=== PATIENT | male | born 1975 | race Two or more races ===

== ENCOUNTER 2021-09-19 13:32 | Emergency (ER) | payer OTHER ==
--- NOTE | 2021-09-19 15:25 | ED ---
General Adult HPI - General Chief complaint: Upper Respiratory Infection Stated complaint: Cough,FIOR-Wants covid screening Time Seen by Provider: 09/19/21 14:22 Source: patient, RN notes reviewed Mode of arrival: ambulatory Limitations: no limitations - History of Present Illness Initial comments: 46-year-old male presents to the emergency room for a chief complaint of not feeling well. Patient believes he has COVID-19. Patient has had a cough and shortness of breath since the day after [place]. Patient states he was told he could get an antibody infusion here. Patient states he has a history of asthma, he does use an inhaler at home. He has slight shortness of breath. He is unvaccinated Patient has no other complaints at this time including shortness of breath, chest pain, abdominal pain, nausea or vomiting, headache, or visual changes. - Related Data Allergies Allergy/AdvReac Type Severity Reaction Status Date / Time No Known Allergies Allergy Verified 09/19/21 14:14 Review of Systems ROS Statement: Those systems with pertinent positive or pertinent negative responses have been documented in the HPI. ROS Other: All systems not noted in ROS Statement are negative. Past Medical History Past Medical History: No Reported History, Asthma History of Any Multi-Drug Resistant Organisms: None Reported Past Surgical History: Orthopedic Surgery, Tonsillectomy Past Psychological History: No Psychological Hx Reported Smoking Status: Current every day smoker Past Alcohol Use History: None Reported Past Drug Use History: None Reported General Exam Limitations: no limitations General appearance: alert, in no apparent distress Head exam: Present: atraumatic Eye exam: Present: normal appearance, PERRL, EOMI. Absent: scleral icterus, conjunctival injection ENT exam: Present: normal exam, mucous membranes moist Neck exam: Present: normal inspection, full ROM Respiratory exam: Present: normal lung sounds bilaterally. Absent: respiratory distress, wheezes Cardiovascular Exam: Present: regular rate, normal rhythm, normal heart sounds Course Vital Signs 09/19/21 14:12 Temperature 98.4 F Pulse Rate 88 Respiratory 18 Rate Blood Pressure 127/83 O2 Sat by Pulse 100 Oximetry Medical Decision Making - Medical Decision Making Vitals are stable. Patient well-appearing. COVID-19 is positive. Patient does qualify for priority antibody infusion as he does have asthma and uses an inhaler. Patient will be discharged home to follow up with primary care and will return for any worsening symptoms. - Lab Data Lab Results 09/19/21 Range/Units 14:19 Coronavirus (PCR) Detected A (Not Detectd) Disposition Clinical Impression: COVID-19 Disposition: HOME SELF-CARE Condition: Good Instructions (If sedation given, give patient instructions): Coronavirus Disease 2019 (COVID-19) Additional Instructions: take Motrin and Tylenol for fever. Take [id number] cold and flu medications. Take vitamin C, D, and zinc. Drink plenty of fluids. Follow-up with your doctor in one to 2 days. Return to the emergency room for any worsening symptoms. Is patient prescribed a controlled substance at d/c from ED?: No Referrals: Kirby Soares MD [Primary Care Provider] - 1-2 days Time of Disposition: 15:24
[2021-09-19] MEDS ORDERED: BAMLANIVIMAB (EUA) 700 MG, ETESEVIMAB (EUA) 1,400 MG in SODIUM CHLORIDE 0.9% 100 ML IVPB ONE (16:00)
[2021-09-19] MEDS ORDERED: SODIUM CHLORIDE 0.9% 50 ML IVPB ONE (16:30)
[2021-09-19 17:33] VITALS: BP 124/73; PULSE 80; RESP 20; TEMP 98.2
== END 2021-09-19 17:33 | disposition home or self-care (01) ==
LOC: EC 13:32
DX: U07.1 COVID-19 (principal); F17.200 Nicotine dependence, unspecified, uncomplicated
CPT/HCPCS: 96360; 99284; M0245; 87635